=== PATIENT | female | born 2000 | race Caucasian/White ===

== ENCOUNTER → 2019-12-22 | Emergency (ER) | payer MEDICAID ==
[~2019-12-22] VITALS: Ht 172.7 cm; Wt 59.0 kg
[~2019-12-22] MED LIST: DiphenhydrAMINE 50mg/ml Inj IVP ONE; IBUPROFEN600 M1 ORAL; Ketorolac 30mg Inj IV ONE; ONDANSETRON ODT4 MG BC
[2019-12-22 01:54] VITALS: BP 121/81
[2019-12-22 02:07] VITALS: BP 121/81
--- NOTE | 2019-12-22 02:07 | NUR ---
ED Nurse Note: Patient here for migraines.
--- NOTE | 2019-12-22 02:14 | Emergency Room Report ---
History of Present Illness General Chief Complaint: Headache Source: Patient Present Illness HPI Disclaimer: Please note that this report is being documented using [employer] technology. This can lead to erroneous entry secondary to incorrect interpretation by the dictating instrument. HPI: 19-year-old female history of migraines presents for evaluation of headache. Symptoms present since yesterday afternoon. She reports throbbing frontal headache more concentrated on the right with positive aura, nausea, vomiting, light and sound sensitivity. Denies head injury or loss of conscious , fever, chills, neck or back pain. Reports the symptoms are consistent with her previous migraine headaches. She no longer takes prophylactic medications. She tried to take NSAIDs but was unable to hold them down because of vomiting. States she gets these headaches once or twice a month but no longer follows up with PMD or neurology. Denies numbness, tingling, sudden weakness, loss of vision. LMP last week. Denies possibility of . PMH: Migraines PSH: Sinus surgery Allergies: Denied Social Hx: Regular tobacco use, social alcohol use, occasional THC Allergies: Coded Allergies: No Known Allergies (Unverified , 12/22/19) COVID-19 Screening Contact w/high risk pt: No Experienced COVID-19 symptoms?: No COVID-19 Testing performed ADMINISTRATIVE PERSONAL ASSISTANT: No Patient History Last Menstrual Period: 12-10-2019 Now: No Nursing Documentation-PMH Past Medical History: No History, Except For Review of Systems All Other Systems: negative except mentioned in HPI Physical Exam Vital Signs Date Time Temp Pulse Resp B/P (MAP) Pulse Ox O2 Delivery O2 Flow Rate FiO2 12/22/19 01:54 98.4 84 18 121/81 (94) 97 Room Air General: Awake and alert, appears mildly uncomfortable HEENT: NC/AT. EOMI. PERRLA. No nystagmus. Cardiovascular: RRR. S1 and S2 normal. No murmur appreciated Resp: Normal work of breathing. No cough, wheezing or crackles appreciated Abdomen: Abdomen is soft, nondistended. Nontender Skin: Intact. No abrasions, laceration or rash over the exposed skin MSK: Normal tone and bulk. Moving all extremities. No obvious deformity. Neuro: Awake and alert. Mentating appropriately. Medical Decision Making Diagnostic Impression: Primary Impression: Headache ER Course Is a 19-year-old female history of migraines presenting for evaluation of headache. Presentation today consistent with migraine there is no evidence of head injury, neuro deficit or other signs of infection. Presentation consistent with the patient's typical migraine according to her. She was treated with IV fluids, Compazine, Benadryl and Toradol. She slept approximately 1.5 hours and on awakening felt significantly improved. She would like to return home to rest and follow-up with her PMD. She is recently switched insurance and is in the process of finding a new doctor. I strongly encouraged her to discuss her recurrent headaches and to restart prophylactic migraine medication. She states she will discuss this with her new doctor. Discussed reasons to return to the ED. She understands and agrees with this treatment plan. Last Vital Signs Date Time Temp Pulse Resp B/P (MAP) Pulse Ox O2 Delivery O2 Flow Rate FiO2 12/22/19 02:07 98.4 83 18 121/81 97 Room Air Disposition: HOME, SELF-CARE Condition: Improved Scripts Ibuprofen* (MOTRIN*) 600 Mg Tablet 600 MG ORAL Q6H PRN for For Pain, #30 TAB 0 Refills Prov: Doc Rowland MD 12/22/19 Ondansetron Odt* (ZOFRAN ODT*) 4 Mg Tab.rapdis 4 MG BC EVERY 6 HOURS PRN for Nausea & Vomiting, #10 TAB 0 Refills Prov: Doc Rowland MD 12/22/19 Doc Rowland MD Dec 22, 2019 02:14
== END | disposition home or self-care (01) ==
LOC: EMR 02:10
DX: R51 Headache (principal)
CPT/HCPCS: 96361; 96374; 96375; J0780; J1200; J1885; J7030; Z7502; 99284